=== PATIENT | male | born 2000 | race Two or more races ===

== ENCOUNTER → 2025-01-10 | Outpatient (CLI) | payer MEDICAID, SELFPAY ==
--- NOTE | 2025-01-10 08:50 | XR_ITS ---
Examination: Abdomen AP single view Technique: AP portable supine abdomen, single view Exam date and time: January 10, 2025, 0859 hours INDICATIONS: Lower abdominal pain beginning yesterday. FINDINGS: Mild to moderate stool throughout the colon. No obstruction. No free air IMPRESSION: Mild to moderate stool throughout the colon
== END | disposition home or self-care (01) ==
PROVIDERS: Referring Provider Physician Assistant; Visit Provider Physician Assistant
DX: K59.00 Constipation, unspecified (principal)
CPT/HCPCS: 74018

== ENCOUNTER → 2025-01-17 | Outpatient (CLI) | payer MEDICAID, SELFPAY ==
--- NOTE | 2025-01-17 09:09 | XR_ITS ---
EXAMINATION: Abdomen sonogram complete TECHNIQUE: Grayscale sonographic images of abdomen Date and time: January 17, 2025, 0941 hours INDICATIONS: Right upper abdominal pain 1 week. FINDINGS: Normal gallbladder. Normal common bile duct. Pancreatic head 1.9 cm Proximal aorta visualized not enlarged Liver 13.9 cm smooth contour no liver lesions Normal hepatopetal portal venous flow Patent IVC Right kidney 10.2 cm in the cortex 1.0 cm Left kidney 11.1 cm renal cortex 1.0 cm No hydronephrosis Spleen 9.4 cm IMPRESSION: Normal gallbladder Liver normal size
== END | disposition home or self-care (01) ==
PROVIDERS: PCP Registered Nurse Community Health; Referring Provider Registered Nurse Community Health; Visit Provider Registered Nurse Community Health
DX: R10.9 Unspecified abdominal pain (principal); R11.0 Nausea
CPT/HCPCS: 76700